=== PATIENT | female | born 1960 | race Caucasian/White ===

== ENCOUNTER 2016-08-16 20:56 | Emergency (ER) | payer SELFPAY ==
[2016-08-16] MEDS ORDERED: Albuterol/Ipratropium 3.0-0.5 MG/3 ML Neb Soln NEB ONE (21:32)
--- NOTE | 2016-08-16 21:45 | EDM.PDOC ---
ED HISTORY OF PRESENT ILLNESS - General Chief Complaint: Respiratory Problem Stated Complaint: PT HAS DIFFICULTY BREATHING Time Seen by Provider: 08/16/16 21:17 - History of Present Illness INITIAL COMMENTS - FREE TEXT/NARRATIVE: HISTORY AND PHYSICAL: History of present illness: The patient is a 56-year-old female with no stated medical problems and no pulmonary history who presents with a three-week history of hacking cough without production of phlegm and no fever chills vomiting abdominal pain or shortness of breath. She says that today she was starting to feel better as well as yesterday feeling better and she started having a spastic coughing episode where she couldn't catch her breath which has since stopped. She also says that over the last 2 days she's been feeling more congested and having more nasal drainage. She has no fevers chills sore throat earache and felt short of breath with the coughing spasm but has not been short of breath now. She did not get her influenza shot this year and she is not seeing her provider for these symptoms. She's been eating and drinking normally. She has no leg pain or swelling and no cardiac history. She has no chest pain per se. Patient states she was out doing yard work in the lawn yesterday including mowing the lawn. She denies any seasonal allergies or chronic bronchitis and is not a smoker nor is she around people who smoke. [place] Review of systems: As per history of present illness and below otherwise all systems reviewed and negative. Past medical history: As per history of present illness and as reviewed below otherwise noncontributory. Surgical history: As per history of present illness and as reviewed below otherwise noncontributory. Social history: No reported history of drug or alcohol abuse. Family history: As per history of present illness and as reviewed below otherwise noncontributory. Physical exam: General: Well-developed well-nourished female was not breathless on my evaluation but has nasal quality to voice and is speaking clearly and easily otherwise. Vital signs as noted by me. HEENT: Atraumatic, normocephalic, negative for conjunctival pallor or scleral icterus, mucous membranes moist, throat clear, neck supple, nontender, trachea midline. Lungs: Clear to auscultation, breath sounds equal bilaterally, chest nontender. No work or breathing no stridor no wheezing appreciated on my evaluation Heart: S1S2, regular, negative for clicks, rubs, or JVD. Abdomen: Soft, nondistended, nontender. NABS Negative for costovertebral tenderness. Genitourinary: Deferred. Rectal: Deferred. Extremities: Atraumatic, negative for cords or calf pain. Neurovascular unremarkable. No pedal edema Neuro: Awake, alert, oriented. Cranial nerves II through XII unremarkable. Cerebellum unremarkable. Motor and sensory unremarkable throughout. Exam nonfocal. Diagnostics: Influenza swab chest x-ray Therapeutics: Duo neb prednisone spacer Patient states that she does feel better and we will give her spacer for home use. I will also prescribe prednisone and inhaler and recommend close followup with provider. Impression: Bronchitis/bronchospastic cough Definitive disposition and diagnosis as appropriate pending reevaluation and review of above. - Related Data Allergies/ADRs: Allergies Allergy/AdvReac Type Severity Reaction Status Date / Time penicillin G Allergy Hives Verified 08/16/16 21:12 penicillin G procaine Allergy Hives Verified 08/16/16 21:12 penicillin V Allergy Hives Verified 08/16/16 21:12 penicillinase Allergy Hives Verified 08/16/16 21:12 Penicillins Allergy Hives Verified 08/16/16 21:12 Home Meds: Home Meds Levothyroxine [Synthroid] 100 mcg PO DAILY 08/16/16 [History] Past Medical History HEENT History: Reports: Impaired vision Other HEENT History: wears contact lenses - Infectious Disease History Infectious Disease History: Reports: Chicken pox - Past Surgical History HEENT Surgical History: Reports: Adenoidectomy, Tonsillectomy GI Surgical History: Reports: Cholecystectomy Social & Family History - Family History Family Medical History: Noncontributory - Tobacco Use Smoking Status *Q: Never Smoker Second Hand Smoke Exposure: No - Caffeine Use Caffeine Use: Reports: Energy drinks, Tea Caffeine Use Comment: 1drink each/day - Alcohol Use Days Per Week of Alcohol Use: 7 Number of Drinks Per Day: 1 Total Drinks Per Week: 7 - Recreational Drug Use Recreational Drug Use: No ED ROS GENERAL - Review of Systems Review Of Systems: ROS reveals no pertinent complaints other than HPI. ED EXAM, GENERAL - Physical Exam Exam: See Below (See dictation) Course - Vital Signs Last Recorded V/S: Last Vital Signs Temp 36.6 C 08/16/16 21:07 Pulse 90 08/16/16 21:07 Resp 19 08/16/16 21:07 BP 135/77 08/16/16 21:07 Pulse Ox 95 08/16/16 21:07 - Orders/Labs/Meds Orders: Active Orders 24 hr Category Date Time Status Communication Order [RC] STAT Care 08/16/16 23:20 Ordered RT Aerosol Therapy [RC] ASDIRECTED Care 08/16/16 21:32 Active Chest 2V [CR] Stat Exams 08/16/16 21:32 Taken Meds: Medications Discontinued Medications Generic Name Dose Route Start Last Admin Trade Name Freq PRN Reason Stop Dose Admin Albuterol/Ipratropium 3 ml 08/16/16 21:32 08/16/16 21:38 Duoneb 3.0-0.5 Mg/3 Ml NEB 08/16/16 21:33 3 ml ONETIME ONE Administration Prednisone 40 mg 08/16/16 23:21 Prednisone PO 08/16/16 23:22 ONETIME ONE Departure - Departure Time of Disposition: 23:24 Disposition: Home, Self-Care 01 Condition: good Clinical Impression: Bronchitis, Cough due to bronchospasm Forms: ED Department Discharge Additional Instructions: The following information is given to patients seen in the emergency department who are being discharged to home. This information is to outline your options for follow-up care. We provide all patients seen in our emergency department with a follow-up referral. The need for follow-up, as well as the timing and circumstances, are variable depending upon the specifics of your emergency department visit. If you don't have a primary care physician on staff, we will provide you with a referral. We always advise you to contact your personal physician following an emergency department visit to inform them of the circumstance of the visit and for follow-up with them and/or the need for any referrals to a consulting specialist. The emergency department will also refer you to a specialist when appropriate. This referral assures that you have the opportunity for followup care with a specialist. All of these measure are taken in an effort to provide you with optimal care, which includes your followup. Under all circumstances we always encourage you to contact your private physician who remains a resource for coordinating your care. When calling for followup care, please make the office aware that this follow-up is from your recent emergency room visit. If for any reason you are refused follow-up, please contact the [facility] emergency department at and ask to speak to the emergency department charge nurse. [facility] Primary care- Internal Medicine and Family [facility] [address] [place] [address] [id number] [address] [id number] Push hydration and use all medications as prescribed. Please call and followup with your provider next week as we discussed and return here as needed and as discussed. Use [id number] antihistamine. - My Orders Last 24 Hours: My Active Orders 08/16/16 21:32 RT Aerosol Therapy [RC] ASDIRECTED Chest 2V [CR] Stat 08/16/16 23:20 Communication Order [RC] STAT - Assessment/Plan Last 24 Hours: My Active Orders 08/16/16 21:32 RT Aerosol Therapy [RC] ASDIRECTED Chest 2V [CR] Stat 08/16/16 23:20 Communication Order [RC] STAT
[2016-08-16] MEDS ORDERED: predniSONE 20 MG Tab PO ONE (23:21)
[2016-08-17 00:54] VITALS: BP 135/75
--- NOTE | 2016-08-17 11:28 | CR ---
EXAM DATE: 08/16/16 PATIENT'S AGE: 56 Patient: WILBERT RIVERA Facility: [place], [place] Site . Site : 1960 Study: XRay Chest [id number]/13/2017 10:34:59 PM Ordering Physician: Javed Antunez Final Report: HISTORY: Cough, dyspnea. FINDINGS: PA and lateral chest radiographs demonstrate a normal cardiac silhouette. Pulmonary vasculature and mary ann are normal. No lobar consolidation or pleural effusion is seen. Bony structures are normal for age. The surgical clips in the right upper quadrant. IMPRESSION: No acute cardiopulmonary disease or infiltrate. Dictated by Rhoda Saravia MD @ 08/16/2016 10:43:59 PM Dictated by: Rhoda Saravia MD @ 08/16/2016 22:44:03 (Electronic Signature) Report Signed by Proxy and Original Signed Document filed in the Medical Record. MTDD
== END 2016-08-16 23:46 | disposition home or self-care (01) ==
LOC: MW.ED 20:56
DX: J40 Bronchitis, not specified as acute or chronic (principal); J98.01 Acute bronchospasm; Z90.49 Acquired absence of other specified parts of digestive tract; Z98.890 Other specified postprocedural states; Z79.899 Other long term (current) drug therapy
CPT/HCPCS: 71020; 71020-26; 87804; 94664; 99284; 99284-25